=== PATIENT | female | born 1955 | race Caucasian/White ===

== ENCOUNTER 2022-07-03 07:55 | Day surgery (SDC) | payer OTHER, MEDICAID ==
[~2022-07-03] VITALS: Ht 149.9 cm; Wt 109.8 kg
[~2022-07-03 07:55] MED LIST: DIPHENHYDRAMINE INJ 50 MG/ML VIAL ONE; MIDAZOLAM HCL 5 MG/5 ML VIAL ONE
[2022-07-03] MEDS ORDERED: fentaNYL CITRATE/PF 100 MCG/2 ML AMP ONE (09:48)
[2022-07-03] MEDS ORDERED: DIPHENHYDRAMINE INJ 50 MG/ML VIAL IVP ONE (10:34)
[2022-07-03] MEDS ORDERED: BUPIVACAINE /PF 0.25% 30 ML VIAL INJ ONE (10:34)
[2022-07-03] MEDS ORDERED: MIDAZOLAM HCL 2 MG/2 ML VIAL (VERSED) IVP ONE (10:34)
[2022-07-03] MEDS ORDERED: methylPREDNISolone ACETATE 40 MG/ML ONE (10:34)
[2022-07-03] MEDS ORDERED: IOHEXOL 300 mgI/mL, 50 mL INFUS..BTL IV ONE (10:34)
[2022-07-03] MEDS ORDERED: LIDOCAINE 2%, 20 ML MDV ONE (10:34)
[2022-07-03 13:07] VITALS: BP_SYST 127
== END 2022-07-03 12:05 | disposition home or self-care (01) ==
LOC: SDS 07:55 → SMU 08:00 → EDSEX 09:15 → EDSTATUS 09:15 → SDS 12:05
PROVIDERS: ATTEND Internal Medicine
DX: M51.16 Intervertebral disc disorders with radiculopathy, lumbar region (principal); M47.26 Other spondylosis with radiculopathy, lumbar region; I10 Essential (primary) hypertension; Z79.899 Other long term (current) drug therapy; Z20.822 Contact with and (suspected) exposure to COVID-19
CPT/HCPCS: 62323; 87426; 36415; J3490; J1200; J2001; J1030; J2250; J3465; Q9967; 76000; J3010

== ENCOUNTER 2023-04-30 07:20 | Day surgery (SDC) | payer OTHER ==
[~2023-04-30] VITALS: Ht 149.9 cm; Wt 111.1 kg
[2023-04-30] MEDS ORDERED: MIDAZOLAM HCL 5 MG/5 ML VIAL ONE (08:58)
[2023-04-30] MEDS ORDERED: fentaNYL CITRATE/PF 100 MCG/2 ML AMP ONE (08:58)
[2023-04-30] MEDS ORDERED: DIPHENHYDRAMINE INJ 50 MG/ML VIAL ONE (08:59)
[2023-04-30] MEDS ORDERED: ONDANSETRON HCL 4 MG/2 ML VIAL ONE (08:59)
[2023-04-30] MEDS ORDERED: NORMAL SALINE 10 ML VIAL ONE (09:00)
[2023-04-30] MEDS ORDERED: LIDOCAINE 2%, 20 ML MDV ONE (09:00)
[2023-04-30] MEDS ORDERED: methylPREDNISolone ACETATE 40 MG/ML ONE (09:00)
[2023-04-30 17:18] VITALS: BP_SYST 148
== END 2023-04-30 11:50 | disposition home or self-care (01) ==
LOC: SMU 07:20 → SDS 07:20
PROVIDERS: ATTEND Internal Medicine
DX: M51.16 Intervertebral disc disorders with radiculopathy, lumbar region (principal); I10 Essential (primary) hypertension; M47.816 Spondylosis without myelopathy or radiculopathy, lumbar region; E66.9 Obesity, unspecified; Z79.899 Other long term (current) drug therapy
CPT/HCPCS: 62323; J1200; J2001; J1030; J2250; J3010; 76000; J2405